=== PATIENT | female | born 1965 | race Caucasian/White ===

== ENCOUNTER 2023-03-30 14:21 | Emergency (ER) | payer SELFPAY ==
[~2023-03-30] VITALS: Ht 165.1 cm; Wt 80.7 kg
--- NOTE | 2023-03-30 14:30 | NUR ---
BIBS C/O LOWER BACK AND HEAD PAIN S/P SLIP AND FALL LAST NIGHT. NO LOC. VOMITING 2X TODAY. AMBULATORY, PLACED IN BED, [id number].
--- NOTE | 2023-03-30 14:35 | NUR ---
AT BEDSIDE FOR EVAL
--- NOTE | 2023-03-30 14:46 | NUR ---
PATIENT TAKEN TO CT VIA [facility]
[2023-03-30] MEDS ORDERED: ONDANSETRON HCL 4 MG/5 ML SOLUTION PO ONE (15:00)
[2023-03-30] MEDS ORDERED: MORPHINE SULFATE INJ 2 MG/ML DISP.SYRIN IM ONE (15:00)
[2023-03-30] MEDS ORDERED: MORPHINE SULFATE INJ 4 MG/ML DISP.SYRIN ONE (15:05)
[2023-03-30] MEDS ORDERED: ONDANSETRON HCL 4 MG/5 ML SOLUTION ONE (15:05)
[2023-03-30] MEDS ORDERED: LIDO30AD10 TP ×2 (16:13→17:10)
[2023-03-30] MEDS ORDERED: TRAM50TA2 PO (16:13)
--- NOTE | 2023-03-30 17:35 | NUR ---
Patient discharged to home in stable condition. Written and verbal after care instructions given. Patient verbalizes understanding of instruction.
[2023-03-30 17:36] VITALS: BP 120/65
== END 2023-03-30 17:35 | disposition home or self-care (01) ==
LOC: ER 14:32
DX: S30.0XXA Contusion of lower back and pelvis, initial encounter (principal); Z79.899 Other long term (current) drug therapy; W18.30XA Fall on same level, unspecified, initial encounter; Y93.89 Activity, other specified; Y92.89 Other specified places as the place of occurrence of the external cause; Y99.8 Other external cause status
CPT/HCPCS: 99285; 70450; 96372; 72131; J2270; Q0162